=== PATIENT | male | born 1990 | race Caucasian/White ===

== ENCOUNTER → 2017-10-30 10:47 | Outpatient (CLI) | payer OTHER, SELFPAY ==
--- NOTE | 2017-10-30 10:51 | RAD_ITS ---
STUDY: X-RAY - LUMBAR SPINE REASON FOR EXAM: Male, 27 years old. Low back pain. TECHNIQUE: 4 view(s) of the lumbar spine were obtained including oblique views. COMPARISON: None FINDINGS: There is straightening of the normal lumbar lordosis. There is a minimal levoscoliosis of the lumbar spine. There is a normal alignment of the vertebrae. Normal vertebral bodies and endplates. Normal disc space heights. The soft tissue structures are unremarkable. RAD/L/S Spine Min 4 Views IMPRESSION: Straightening of the normal lumbar lordosis. Electronically Signed: Fredo Rodriguez MD at 15:39 EDT Tel [phone], Service support ,
== END ==
PROVIDERS: Family Provider Nurse Practitioner; PCP Nurse Practitioner; Visit Provider Nurse Practitioner
DX: M54.9 Dorsalgia, unspecified (principal)
CPT/HCPCS: 72110

== ENCOUNTER 2018-01-01 09:00 | Outpatient (RCR) | payer OTHER, SELFPAY ==
--- NOTE | 2017-11-06 16:34 | HP.PTEVAL_ITS ---
Patient's Visit Information TC NG is a 27 year old M referred to Physical Therapy by Fernanda Weir NP.MCIESA with a diagnosis of LOW BACK PAIN. Date of Evaluation: 11/06/17 Physical Therapist: Ranjit Guardado PT, - Visit Plan Frequency: 2x /Week Duration: 6 Weeks Plan: HARDY SUMNER'S ,DLS,LE FLEXABLITY ,MODALTIES - Subjective Subjective: This 27 y/o male presents to physical therapy with low back pain. Patient has had pain since 2013 [place], which patient [employer].Patient was landing from [place],then several months later bend over coased pain. Patient has symmtrical lumbar pain without radicular symptoms.Patient described as sharp pain. Symptoms worse with with sitting,bending,lifting and standing. Patient had x-rays and MRI. Denies paratrhesia/tingling. Bowel/ bladder good. SOCIAL: . VOCATION: [employer] - Pain Bilateral Buttocks Pain Intensity (Out of 10): 5 Pain Intensity Range: 10 - Objective POSTURE: decrease lumbar spine,decrease lordosis. PALAPTION: tender L-S spine. NEURO: denies parathesia/tingling,reflexes 1/3 L3-4,L4-5,L5-S1. MMT: 5/5 quads/hams/hip /ankle 5/5. LUMBAR ROM: flexion min loss pain ,extension mod loss pain ,side glides min loss. SYYMTRIES: align. FLEXABLITY: hams min/mod tight - Special Tests L/S Slump test left side: Positive L/S Slump test right side: Positive L/S Left Straight Leg Raise: Negative L/S Right Straight Leg Raise: Negative Lumbar Standing: Flexion - Mechanical Response: No effect Lumbar Standing: Flexion - Symptoms During Testing: Increases Lumbar Standing: Flexion - Symptoms After Testing: Worse Lumbar Standing: Extension - Mechanical Response: No effect Lumbar Standing: Extension - Symptoms During Testing: Increases Lumbar Standing: Extension - Symptoms After Testing: No worse Lumbar Standing: Right Side Glides - Mechanical Response: No effect Lumbar Standing: Right Side [place] - Symptoms During Testing: No effect Lumbar Standing: Right Side [place] - Symptoms After Testing: No effect Lumbar Standing: Left Side [place] - Mechanical Response: No effect Lumbar Standing: Left Side [place] - Symptoms During Testing: No effect Lumbar Standing: Left Side [place] - Symptoms After Testing: No effect - Goals Goal 1:: Patient to Independant with HEP. Goal Time Frame: 4-6 Weeks Goal 2:: Independant with POSTURE/BODY MECHANICS. Goal Time Frame: 4-6 Weeks Goal 3:: Patient decrease lumbar pain by 50-60% or greater to improve lumbar. Goal Time Frame: 4-6 Weeks Goal 4:: Patient to improve lumbar ROM WFL to improve function of recovery Goal Time Frame: 4-6 Weeks Goal 5:: Patient be able to perform job demands with with min limiatiions - Rehabilitation Potential Physical Therapy Diagnosis: This patient has symmtrical lumnar pain possible derrangemnent with loss,pain ,decrease core strength posture deficits thus benifit from skilled PT Rehabilitation Potential: Good - Anticipated Interventions Patient/Client Instruction: Educate patient on: Condition, Plan of Care For the Purpose of:: To decrease pain, To increase ROM, To improve muscle performance and motor function, To improve ability to perform ADL's, To increase tolerance to activity/condition/position, To improve ability of physical actions for home/community/work/leisure, To improve health of tissue, To decrease soft tissue restriction, To increase flexibility/ROM, To reduce risk of recurrence, To prevent re-injury, To improve ability to perform tasks related to life management Therapeutic Exercise to Include: Strength training, Body mechanics, Postural training, Flexibilty training, Dynamic Lumbar Stabilization, Hardy Exercises For the Purpose of:: To decrease pain, To increase ROM, To improve muscle performance and motor function, To increase tolerance to activity/condition/ position, To improve ability of physical actions for home/community/work/leisure , To improve health of tissue, To decrease soft tissue restriction, To increase flexibility/ROM, To prevent re-injury, To improve ability to perform tasks related to life management TENS: Yes IF ES: Yes Cryotherapy (ice pack, ice massage): Yes Thermo therapy (hot pack): Yes Ultrasound (thermal/non thermal): Yes For the Purpose of:: To decrease pain, To increase ROM, To improve nutrient delivery to tissue, To increase oxygenation perfusion, To improve health of tissue, To decrease soft tissue restriction Thank you for the opportunity to evaluate your patient. For Medicare and Medicare HMO plans, please review the plan of care and approve it. It will need to be FAXED BACK to us at [phone] for Medicare purposes. Please let me know if there are questions or concerns regarding this plan of care. Physician Signature: Date:
--- NOTE | 2018-03-17 10:33 | HP.PTDCNRP_ITS ---
HP - Discharge Summary (1) - Patient Information TC NG was seen in my office for initial evaluation on 11/06/17. The following Plan of Care was established for this patient: Initial Frequency: 2x /Week Initial Duration: 6 Weeks - Anticipated Interventions Patient/Client Instruction: Educate patient on: Condition, Plan of Care For the Purpose of:: To decrease pain, To increase ROM, To improve muscle performance and motor function, To improve ability to perform ADL's, To increase tolerance to activity/condition/position, To improve ability of physical actions for home/community/work/leisure, To improve health of tissue, To decrease soft tissue restriction, To increase flexibility/ROM, To reduce risk of recurrence, To prevent re-injury, To improve ability to perform tasks related to life management Therapeutic Exercise to Include: Strength training, Body mechanics, Postural training, Flexibilty training, Dynamic Lumbar Stabilization, Rebecca Exercises For the Purpose of:: To decrease pain, To increase ROM, To improve muscle performance and motor function, To increase tolerance to activity/condition/ position, To improve ability of physical actions for home/community/work/leisure , To improve health of tissue, To decrease soft tissue restriction, To increase flexibility/ROM, To prevent re-injury, To improve ability to perform tasks related to life management TENS: Yes IF ES: Yes Cryotherapy (ice pack, ice massage): Yes Thermo therapy (hot pack): Yes Ultrasound (thermal/non thermal): Yes For the Purpose of:: To decrease pain, To increase ROM, To improve nutrient delivery to tissue, To increase oxygenation perfusion, To improve health of tissue, To decrease soft tissue restriction This patient was last seen in our office 01/01/18. Pertinent comments regarding their Physical therapy will appear below: Patient seen for PT for low back pain for DLS ,postural ex's ,strengthening, modalties for pain releive . Patient progressed with decreasing pain for function of recovery. Thus is d/c. At this point I will be discontinuing this patient from physical therapy. I would be happy to see this patient again in the future if found appropriate by the physician. Thank you! Ranjit Guardado, PT,
== END 2018-01-01 19:00 | disposition home or self-care (01) ==
LOC: PT 09:00
PROVIDERS: Family Provider Nurse Practitioner; PCP Nurse Practitioner; Visit Provider Nurse Practitioner
DX: M54.9 Dorsalgia, unspecified (principal)
CPT/HCPCS: 97014; 97110; 97161; G0283

== ENCOUNTER → 2018-02-06 08:19 | Outpatient (CLI) | payer OTHER, SELFPAY ==
--- NOTE | 2018-02-06 08:53 | US_ITS ---
STUDY: THYROID ULTRASOUND REASON FOR EXAM: Male, 27 years old. Palpable lump on thyroid. TECHNIQUE: Ultrasound evaluation of the thyroid was performed with real-time and static jordan-scale imaging. COMPARISON: None. FINDINGS: RIGHT LOBE: The right lobe of the thyroid gland measures 5.5 x 1.6 x 1.8 cm. There is a homogeneous echotexture. There are no demonstrated solid, cystic or complex lesions. LEFT LOBE: The left lobe of the thyroid gland measures 4.9 x 1.7 x 1.2 cm. There is a homogeneous echotexture. There are no demonstrated solid, cystic or complex lesions. ISTHMUS: The isthmus measures 3.0 mm . The regional lymph nodes are normal. US/Thyroid IMPRESSION: Enlarged thyroid gland. No discrete nodules. Electronically Signed: Constanza Barrett MD at 16:50 EDT Tel , Service support ,
== END ==
PROVIDERS: Family Provider Nurse Practitioner; PCP Nurse Practitioner; Visit Provider Nurse Practitioner Gerontology
DX: E07.9 Disorder of thyroid, unspecified (principal)
CPT/HCPCS: 76536

== ENCOUNTER → 2018-04-07 07:20 | Outpatient (CLI) | payer OTHER, SELFPAY | PROVIDERS: Family Provider Nurse Practitioner; PCP Nurse Practitioner; Visit Provider Otolaryngology | DX: R20.0 Anesthesia of skin (principal) | CPT/HCPCS: 70553; A9585 ==

== ENCOUNTER → 2018-04-22 11:07 | Outpatient (CLI) | payer OTHER, SELFPAY ==
--- NOTE | 2018-04-22 11:09 | RAD_ITS ---
STUDY: X-RAY - RIGHT SHOULDER REASON FOR EXAM: Male, 27 years old. Chronic pain. TECHNIQUE: 4 view(s) of the shoulder. COMPARISON: None. FINDINGS: Normal glenohumeral articulation. Normal acromioclavicular joint. Normal acromion. There is no acute fracture, dislocation or destructive osseous pathology. Normal humeral head and visualized proximal humerus. The soft tissue structures are unremarkable. Normal visualized pulmonary apex. RAD/Shoulder min 2 Views IMPRESSION: Normal x-ray examination of the shoulder. Electronically Signed: Femi Shoemaker DO at 17:40 EDT Tel [phone], Service support ,
--- NOTE | 2018-04-22 11:09 | RAD_ITS ---
STUDY: X-RAY - LEFT ANKLE REASON FOR EXAM: Male, 27 years old. Pain. TECHNIQUE: 3 view(s) of the ankle. COMPARISON: None. FINDINGS: Normal visualized distal tibia and fibula. Normal medial and lateral malleoli. Normal tibiotalar articulation and ankle mortise. Normal visualized talus and calcaneus. The visualized subtalar, talonavicular, calcaneocuboid and tarsal articulations are normal. The soft tissue structures are unremarkable. RAD/Ankle min 3 Views IMPRESSION: Normal x-ray examination of the ankle. Electronically Signed: Femi Shoemaker DO at 17:40 EDT Tel [phone], Service support ,
== END ==
PROVIDERS: Family Provider Nurse Practitioner; PCP Nurse Practitioner; Visit Provider Nurse Practitioner
DX: M25.511 Pain in right shoulder (principal); M25.572 Pain in left ankle and joints of left foot
CPT/HCPCS: 73030; 73610

== ENCOUNTER → 2018-05-06 09:42 | Outpatient (CLI) | payer OTHER, SELFPAY ==
--- NOTE | 2018-05-06 09:44 | RAD_ITS ---
STUDY: X-RAY - RIGHT SHOULDER REASON FOR EXAM: Shoulder pain. TECHNIQUE: A single axillary view of the shoulder. COMPARISON: Radiographs 04/22/2018. FINDINGS: Normal axillary view of the shoulder. Electronically Signed: Joaquin Lorenzo MD at 14:22 EDT Tel , Service support , RAD/Shoulder One View
== END ==
PROVIDERS: Family Provider Nurse Practitioner; PCP Nurse Practitioner; Visit Provider Orthopaedic Surgery
DX: M25.512 Pain in left shoulder (principal)
CPT/HCPCS: 73020

== ENCOUNTER → 2018-11-19 10:05 | Outpatient (CLI) | payer OTHER, SELFPAY ==
[2018-05-06 09:47] VITALS: BMI 23.1
--- NOTE | 2018-11-19 10:08 | RAD_ITS ---
CLINICAL HISTORY: Male, 28 years old. Right shoulder pain/dislocations. PROCEDURE: ARTHROGRAM - RIGHT SHOULDER CONSENT: The procedure as well as the benefits and possible consultations including infection and bleeding were explained to the patient. Informed consent was obtained. FLUOROSCOPY TIME (if supplied): (0:36) minutes/seconds. 3 images were obtained. Injection Information: 10 cc of dilute Magnevist. Number of images obtained: 3 TECHNIQUE: (All elements of maximal sterile barrier technique followed, including US elements as applicable) The patient was in the supine position. The overlying skin was prepped and draped in usual sterile fashion. Following local anesthetic application and under direct fluoroscopic guidance, a 22-gauge spinal needle was placed into the shoulder joint. 2 cc of Isovue-300 was injected for confirmation. From this, 10 cc of dilute Magnevist was injected. The patient tolerated the procedure well. RAD/Arthrogram Shoulder w/ MRI IMPRESSION: 10 mL of dilute Magnevist injected for MRI imaging. The patient tolerated the procedure well. Electronically Signed: Fredo Rodriguez, at 12:54 EDT , Service support ,
--- NOTE | 2018-11-19 10:45 | MRI_ITS ---
STUDY: MR RIGHT SHOULDER ARTHROGRAPHY REASON FOR EXAM: Right shoulder pain, instability, symptoms for 3-4 years. TECHNIQUE: Standardized fat and water weighted pulse sequences were obtained in all 3 orthogonal planes after intra-articular instillation of dilute Magnevist. COMPARISON: Radiographs 05/06/2018 and 04/22/2018. FINDINGS: Normal supraspinatus tendon. Normal infraspinatus tendon. Normal subscapularis tendon. Normal teres minor tendon. Normal supraspinatus muscle. Normal infraspinatus muscle. Normal subscapularis muscle. Normal teres minor muscle. Normal glenohumeral articulation. Normal humeral head and visualized proximal humerus without Hill-Sachs lesion. There is a SLAP lesion (T1 coronal images 8-12) extending into the posterior labrum (T1 axial images 10-15) and inferior labrum (T1 axial image 16) with very small paralabral cysts at the posterior glenoid (T2 coronal image 5). Normal intracapsular long biceps tendon. Normal capsulo- ligamentous complex. Normal rotator interval. Normal acromioclavicular articulation. There is a Type I morphology (flat undersurface), with a neutral orientation. There is no subacromial-subdeltoid bursal fluid. Normal visualized coracohumeral and coracoacromial ligaments. Normal deltoid muscle. Normal trapezius muscle. MRI/Upper Ext Jt W/Contrast IMPRESSION: SLAP lesion extending into the posterior and inferior labrum. Electronically Signed: Joaquin Lorenzo MD at 12:29 EDT Tel , Service support ,
== END ==
PROVIDERS: Family Provider Nurse Practitioner; PCP Nurse Practitioner; Referring Provider Orthopaedic Surgery; Visit Provider Orthopaedic Surgery
DX: M25.311 Other instability, right shoulder (principal)
CPT/HCPCS: 23350; 73222; 77002; A9577; Q9967